=== PATIENT | female | born 1970 | race Caucasian/White ===

== ENCOUNTER 2016-06-05 07:19 | Inpatient (IN) | payer MEDICARE, OTHER ==
[2016-06-02 11:33] VITALS: BMI 26.3
[2016-06-02 11:39] VITALS: BMI 26.3
[~2016-06-05] VITALS: Ht 152.4 cm; Wt 69.0 kg
[2016-06-05] VITALS (13 sets, daily range): BP systolic 90–141; BP diastolic 60–84; PULSE 83–90; RESP 11–21; Ht 152.4 cm; Wt 69.0 kg
[~2016-06-05 07:19] MED LIST: BUPIVACAINE 0.25% (MPF) 30 ML INJ INJ ONE; CEFAZOLIN 1 GM INJ ONE; CEFAZOLIN 2 GM/50 ML (PMX) 50 ML IVPB SCH; CIPR500T4 PO; ESOM40CA PO; GEMF600T60 PO; GLYCOPYRROLATE 0.4 MG INJ ONE; LANT3I SC; LEVO75TA65 PO; METR500T PO; NOL20 PO; NOVO3I SC; SOD CHLORIDE 0.9% 1,000 ML IV SCH; SYN75 PO
[2016-06-05 09:08] LABS: BASOPHILS % 0.4 % (0.0-2.0); EOSINOPHILS # 0.1 10^3/ul (0.0-0.5); EOSINOPHILS % 2.3 % (0.0-7.0); HEMATOCRIT 32.9 % (37.0-47.0); HEMOGLOBIN 11.1 g/dl (12.0-16.0); LYMPHOCYTES # 1.8 10^3/ul (0.8-2.9); LYMPHOCYTES % 29.5 % (15.0-51.0); MEAN CORPUSCULAR HEMOGLOBIN 27.8 pg (29.0-33.0); MEAN CORPUSCULAR HGB CONC 33.8 g/dl (32.0-37.0); MEAN CORPUSCULAR VOLUME 82.3 fl (82.0-101.0); MEAN PLATELET VOLUME 9.2 fl (7.4-10.4); MONOCYTE # 0.4 10^3/ul (0.3-0.9); MONOCYTES % 6.6 % (0.0-11.0); NEUTROPHIL # 3.8 10^3/ul (1.6-7.5); NEUTROPHILS % 61.2 % (39.0-77.0); PLATELET COUNT 238 10^3/UL (140-440); RED CELL DISTRIBUTION WIDTH 12.4 % (11.5-14.5); UNCORRECTED WBC 6.2 10^3/ul (4.8-10.8); WHITE BLOOD COUNT 6.2 10^3/ul (4.8-10.8)
[2016-06-05] MEDS ORDERED: PROPOFOL 20 ML ONE (09:10)
[2016-06-05] MEDS ORDERED: ROCURONIUM 50 MG INJ ONE (09:10)
[2016-06-05] MEDS ORDERED: FENTAnyl 50 MCG/ML VIAL ONE (09:10)
[2016-06-05] MEDS ORDERED: MIDAZOLAM 1 MG/ML 2 ML INJ ONE (09:10)
[2016-06-05 09:14] LABS: INR 0.91; PROTIME 12.3 Sec (12.2-14.2)
[2016-06-05] MEDS ORDERED: ROPIVACAINE 0.2% 20 ML VIAL ONE (09:16)
[2016-06-05 09:23] LABS: CREATININE 0.59 mg/dl (0.44-1.00); POTASSIUM 4.1 mmol/L (3.5-5.1)
[2016-06-05] MEDS ORDERED: PHENYLephrine (100 MCG/ML) 5ML SYG ONE ×2 (09:26→09:51)
[2016-06-05 09:28] LABS: CONDITION 1
[2016-06-05] MEDS ORDERED: CEFAZOLIN 1 GM INJ ONE (09:34)
[2016-06-05] MEDS ORDERED: FAMOTIDINE 20 MG INJ ONE (09:37)
[2016-06-05] MEDS ORDERED: METOCLOPRAMIDE 10 MG INJ ONE (09:37)
[2016-06-05] MEDS ORDERED: ONDANSETRON 4 MG INJ ONE (09:37)
[2016-06-05 10:09] LABS: PARTIAL THROMBOPLASTIN TIME 24.5 Sec (25.0-35.0)
[2016-06-05] MEDS ORDERED: NEOSTIGMINE 3 MG/3 ML SYRINGE ONE ×2 (10:28)
[2016-06-05] MEDS ORDERED: MEPERIDINE 25 MG INJ IV PRN (10:30)
[2016-06-05] MEDS ORDERED: ACETAMINOPHEN 1000MG/100ML IV 100 ML IVPB PRN (10:30)
[2016-06-05] MEDS ORDERED: ONDANSETRON 4 MG INJ IV PRN (10:30)
[2016-06-05] MEDS ORDERED: HYDROmorphONE (0.2 MG/ML) 10ML SYG IV PRN (10:30)
[2016-06-05] MEDS ORDERED: D5W-0.45 NACL + KCL 20 MEQ 1,000 ML IV SCH (10:30)
[2016-06-05] MEDS ORDERED: hydrALAzine 20 MG INJ IV PRN (10:30)
--- NOTE | 2016-06-05 10:42 | OPR ---
DATE OF OPERATION: 06/05/2016 PREOPERATIVE DIAGNOSIS: Symptomatic cholelithiasis. POSTOPERATIVE DIAGNOSIS: Symptomatic cholelithiasis. OPERATION PERFORMED: Laparoscopic cholecystectomy. ANESTHESIA: General. ANESTHESIOLOGIST: INDICATIONS FOR PROCEDURE: The patient is a 45-year-old female, previously treated her for breast c ancer, which she completed successfully. Subsequently, she developed symptoms of biliary colic and cholelithiasis was confirmed on ultrasound. She was counseled as to the risks versus benefits of ch olecystectomy. She consented and was scheduled for surgery. DESCRIPTION OF PROCEDURE: The patient was brought to the operating theater, placed under general an esthesia. The abdomen was prepped and draped in usual sterile fashion. A 2-cm incision was made in the midline just above the umbilicus. Subcutaneous tissue was dissected with cautery down to the a nterior rectus sheath, 0 Vicryl stay sutures were placed on either side of the linea alba. The line a alba was incised and the abdomen was entered without difficulty. The Eris trocar was then place d in standard fashion and the abdomen was insufflated to a pressure of approximately 14 mmHg with ca rbon dioxide. The laparoscope was introduced and attention was directed to the right upper quadrant where a dye-st ained and distended gallbladder was identified. Three accessory ports were then placed under direct vision in standard fashion. Through the lateral port sites the gallbladder was grasped at the fund us and neck and retracted cephalad and lateral. Peritoneum overlying the gallbladder was incised dequan th medially and laterally to facilitate mobilization of the triangle of [place]ot. With meticulous diss ection, the cystic duct was isolated, and 2 clips were placed across it distally. It was then trans ected with the endovascular RAE stapler at its junction with the neck of the gallbladder. Subsequen tly, cystic artery was triply clipped and transected. The gallbladder was then dissected out of the gallbladder fossa using cautery. Prior to final transection, irrigation and inspection took place. Minimal bleeding was controlled w ith cautery. Gallbladder was transected. Laparoscope was moved to the 12-mm subcostal port site, a nd the gallbladder was retrieved from the abdomen through the umbilical port site using the Nekstad parth retrieval bag. The Eris trocar was then placed back into the abdomen. The abdomen was reinsu fflated. Laparoscope was moved back into the umbilical port site. Final irrigation and inspection took place. There was no evidence of bleeding. The 3 accessory ports were removed under direct vis ion. Again, there was no evidence of bleeding. Finally, the umbilical port was removed. Midline u mbilical fascia was reapproximated with 0 Prolene sutures in [id number] fashion. All wounds we re irrigated with Betadine and skin incisions were closed with skin chris. Patient tolerated proc edure well. ESTIMATED BLOOD LOSS: 10 mL. COMPLICATIONS: There were no complications. DISPOSITION: The patient was transported in stable condition to the recovery room. Dictated By: MONIKA GRACIA/MATEO Conf#: [id number] DID#: [id number]
[2016-06-05] MEDS: HYDROmorphONE (0.2 MG/ML) 10ML SYG IV PRN ×4 (10:53→13:04)
[2016-06-05] MEDS ORDERED: GLUCAGON 1 MG INJ IM PRN (17:00)
[2016-06-05] MEDS ORDERED: GLUCOSE GEL 15 GRAM TUBE PO PRN ×2 (17:00)
[2016-06-05] MEDS ORDERED: DEXTROSE 50% 50 ML SYRINGE IV PRN ×2 (17:00)
[2016-06-05] MEDS ORDERED: GLUCOSE GEL 15 GRAM TUBE BUCCAL PRN (17:00)
[2016-06-05] MEDS: SOD CHLORIDE 0.45% 1,000 ML IV SCH (17:14)
[2016-06-05] MEDS: INSULIN ASPART [NOVOLOG] 3 ML PEN SC SCH ×2 (17:39→21:16)
--- NOTE | 2016-06-05 19:04 | HP ---
DATE OF ADMISSION: 06/05/2016 CHIEF COMPLAINT: Upper abdominal pain. HISTORY OF PRESENT ILLNESS: The patient is a 45-year-old female with history of hypertension, hypot hyroidism, left breast cancer status post left partial mastectomy in 2014 status post chemotherapy, was seen by Dr. Rodriguez as an outpatient due to recurrent right upper quadrant pain. Ultrasound of th e abdomen was done, which revealed gallstone and fatty infiltration of the liver. The patient also underwent CT. The patient was brought into hospital for laparoscopic cholecystectomy. The patient postoperatively has significant abdominal pain and is therefore being admitted for further evaluatio n and management. The patient denied any history of chest pain, shortness of breath. No history of headache, dizziness, syncope. No history of focal weakness. No history of leg edema. No history of vomiting or diarrhea. No history of recent fever or chills. No history of dysuria or hematuria. No history of headache, dizziness, syncope. No history of cough, sore throat. No history of any acute skin rash. REVIEW OF SYSTEMS: Twelve systems were reviewed and all pertinent positive and negative findings schulte ve been described in the history of present illness. ALLERGIES: NONE. PAST SURGICAL HISTORY: Status post in 1994, status post gallbladder surgery in 2010, stat us post hernia repair in 1972, and left partial mastectomy in 2012. FAMILY HISTORY: Noncontributory for patient's condition. SOCIAL HISTORY: The patient was born in [facility], has been residing in the [facility] for mor e than 10 years. No history of alcohol or smoking. MEDICATIONS: The patient is on: 1. Tamoxifen. 2. Lopid. 3. Nexium. 4. Premeal Insulin Lantus. 5. Levoxyl. 6. The patient used to be on benazepril as per old chart; however, currently she is off of it and t he patient's blood pressure remains in low 100s and high 90s. Will hold off on antihypertensive at this time anyway. PHYSICAL EXAMINATION: GENERAL: The patient is conscious, awake, alert. VITAL SIGNS: Temperature 98.5, pulse 84, respirations 13, blood pressure 100/72, O2 is 100% on 2 li ters nasal cannula. HEENT: Atraumatic, normocephalic. Conjunctivae and lids normal. Oropharynx clear. NECK: Supple. No mass, no thyromegaly. LUNGS: Clear to auscultation. No use of accessory muscles. CARDIOVASCULAR: S1, S2 normal. No murmur, gallop, or rub. ABDOMEN: Soft. Incision clean. Bowel sounds sluggish. EXTREMITIES: No leg edema. Pedal pulses palpable. SKIN: Without rash. NEUROLOGIC: The patient is awake, alert, fairly oriented with no gross focal deficit. LABORATORY DATA: WBC 6.3, hemoglobin 11.1, platelets 238. Sodium 142, potassium 4.1, BUN 18, creat inine 0.5, glucose 194, calcium 9. EKG revealed normal sinus rhythm with no acute ST or T changes. IMPRESSION: 1. Symptomatic gallstones, status post laparoscopic cholecystectomy. 2. Diabetes mellitus. 3. Hypertension. 4. Hypothyroidism. 5. Breast cancer status post left partial mastectomy. PLAN: The patient admitted on medical floor. The patient will be started on clear liquid diet, whi ch will be advanced as tolerated. The patient will be given IV fluids until her p.o. intake is adeq uate. Will also start on Lantus. For now, I will keep her on sliding scale since her p.o. intake m ay not be consistent. Meanwhile, will also start her on SCDs for DVT prophylaxis. The patient's Sy nthroid will be continued. Will also continue tamoxifen. Will hold off on antihypertensive for now and will continue to monitor. Plan of care discussed with patient's family. Further recommendations will depend on patient's hosp ital course and recommendations from surgery. Plan of care also discussed with nursing staff. Dictated By: BETTY MONTELONGO/MATEO Conf#: [id number] DID#: [id number]
[2016-06-05] MEDS: ACETAMINOPHEN/CODEINE #3 TAB PO PRN (20:43)
[2016-06-05] MEDS: HYDROmorphONE 1 MG/ML SYG IV PRN (21:09)
[2016-06-05] MEDS: INSULIN GLARGINE [LANtus] 3 ML PEN SC SCH (21:16)
[2016-06-06] MEDS: SOD CHLORIDE 0.45% 1,000 ML IV SCH ×3 (03:10→15:41)
[2016-06-06] MEDS: HYDROmorphONE 1 MG/ML SYG IV PRN ×4 (03:31→18:49)
[2016-06-06] MEDS: ONDANSETRON 4 MG INJ IV PRN ×2 (03:31→09:28)
[2016-06-06] MEDS: LEVOTHYROXINE 75 MCG TAB PO SCH (05:40)
[2016-06-06 06:44] LABS: ALBUMIN 2.7 g/dl (3.3-4.9); BASOPHILS % 0.4 % (0.0-2.0); EOSINOPHILS # 0.1 10^3/ul (0.0-0.5); EOSINOPHILS % 1.4 % (0.0-7.0); HEMATOCRIT 29.1 % (37.0-47.0); LYMPHOCYTES # 1.6 10^3/ul (0.8-2.9); LYMPHOCYTES % 25.2 % (15.0-51.0); MEAN CORPUSCULAR HEMOGLOBIN 28.2 pg (29.0-33.0); MEAN CORPUSCULAR HGB CONC 34.3 g/dl (32.0-37.0); MEAN CORPUSCULAR VOLUME 82.1 fl (82.0-101.0); MONOCYTE # 0.4 10^3/ul (0.3-0.9); MONOCYTES % 6.8 % (0.0-11.0); NEUTROPHIL # 4.1 10^3/ul (1.6-7.5); NEUTROPHILS % 66.2 % (39.0-77.0); PLATELET COUNT 216 10^3/UL (140-440); RED BLOOD COUNT 3.54 10^6/ul (4.20-5.40); RED CELL DISTRIBUTION WIDTH 12.6 % (11.5-14.5); UNCORRECTED WBC 6.2 10^3/ul (4.8-10.8); WHITE BLOOD COUNT 6.2 10^3/ul (4.8-10.8)
[2016-06-06 06:45] LABS: POTASSIUM 3.7 mmol/L (3.5-5.1)
[2016-06-06 06:47] LABS: ALBUMIN/GLOBULIN RATIO 0.84; BILIRUBIN,INDIRECT 0.5 mg/dl (0-1.1); BILIRUBIN,TOTAL 0.5 mg/dl (0.2-1.3); CREATININE 0.47 mg/dl (0.44-1.00); TOTAL PROTEIN 5.9 g/dl (6.1-8.1)
[2016-06-06 06:48] LABS: CALCIUM 8.1 mg/dl (8.4-10.2)
[2016-06-06 07:09] LABS: CONDITION 1
[2016-06-06 08:07] VITALS: BP 96/52; RESP 20
[2016-06-06] MEDS: INSULIN ASPART [NOVOLOG] 3 ML PEN SC SCH ×4 (08:15→21:00)
[2016-06-06] MEDS ORDERED: TAMOXIFEN 10 MG TAB PO SCH (09:00)
[2016-06-06] MEDS: ACETAMINOPHEN/CODEINE #3 TAB PO PRN (09:36)
[2016-06-06] MEDS ORDERED: ACETAMINOPHEN 325 MG TAB PO PRN (12:30)
[2016-06-06] MEDS: METOCLOPRAMIDE 10 MG INJ IV PRN ×2 (12:39→18:49)
--- NOTE | 2016-06-06 17:05 | PN ---
Date/Time of Note Date/Time of Note DATE: 06/06/16 TIME: 17:03 Assessment/Plan VTE Prophylaxis VTE Prophylaxis Intervention: SCD's Lines/Catheters IV Catheter Type (from Nrs): Peripheral IV Assessment/Plan Chief Complaint/Hosp Course Assessment and plan 1. Symptomatic gallstones, status post laparoscopic cholecystectomy. Continue Reglan for nausea and morphine for pain. 2. Diabetes mellitus. Continue NovoLog. 3. Hypertension. 4. Hypothyroidism. Continue Synthroid. 5. Breast cancer status post left partial mastectomy. Further recommendations based on clinical course. Plan of care discussed with Dr. Peralta. Problems: Subjective 24 Hr Interval Summary Free Text/Dictation Patient had multiple episode of vomiting, continue Reglan per nausea, advance diet as patient tolerated. Exam/Review of Systems Vital Signs Vitals Vital Signs Date Time Temp Pulse Resp B/P Pulse Ox O2 Delivery O2 Flow Rate FiO2 06/06/16 09:00 Nasal Cannula 2.0 06/06/16 08:07 98.6 91 20 96/52 98 Intake and Output 06/05/16 06/05/16 06/06/16 15:00 23:00 07:00 Intake Total 1000 ml 1680 ml Output Total 160 ml Balance 840 ml 1680 ml Exam GENERAL: The patient is conscious, awake, alert. HEENT: Atraumatic, normocephalic. PERRLA NECK: Supple. No mass, no thyromegaly. LUNGS: Clear to auscultation. No use of accessory muscles. CARDIOVASCULAR: S1, S2 normal. No murmur, gallop, or rub. ABDOMEN: Soft. Incision clean. Bowel sounds sluggish. EXTREMITIES: No leg edema. Pedal pulses palpable. SKIN: Without rash. NEUROLOGIC: The patient is awake, alert. Results Result Diagram: 06/06/16 0505 06/06/16 0505 Results 24 hrs Laboratory Tests Test 06/05/16 17:21 06/05/16 21:13 06/06/16 05:05 06/06/16 07:42 Bedside Glucose 181 189 156 Alanine Aminotransferase (ALT/SGPT) 78 H Albumin 2.7 L Albumin/Globulin Ratio 0.84 Alkaline Phosphatase 70 Anion Gap 13 Aspartate Amino Transf (AST/SGOT) 88 H Basophils # 0.0 Basophils % 0.4 Blood Morphology Comment Blood Urea Nitrogen 9 # Calcium Level 8.1 L Carbon Dioxide Level 25 Chloride Level 105 Creatinine 0.47 Direct Bilirubin 0.00 Eosinophils # 0.1 Eosinophils % 1.4 Globulin 3.20 Glucose Level 172 Hematocrit 29.1 L Hemoglobin 10.0 L Indirect Bilirubin 0.5 Lymphocytes # 1.6 Lymphocytes % 25.2 Mean Corpuscular Hemoglobin 28.2 L Mean Corpuscular Hemoglobin Concent 34.3 Mean Corpuscular Volume 82.1 Mean Platelet Volume 9.0 Monocytes # 0.4 Monocytes % 6.8 Neutrophils # 4.1 Neutrophils % 66.2 Nucleated Red Blood Cells # 0.0 Nucleated Red Blood Cells % 0.0 Platelet Count 216 Potassium Level 3.7 Red Blood Count 3.54 L Red Cell Distribution Width 12.6 Sodium Level 139 Total Bilirubin 0.5 Total Protein 5.9 L White Blood Count 6.2 Test 06/06/16 11:17 06/06/16 16:52 Bedside Glucose 146 145 Medications Medications Current Medications Ondansetron HCl (Zofran Inj) 4 mg Q6H PRN IV NAUSEA AND/OR VOMITING Last administered on 06/06/16 09:28; Admin Dose 4 MG; Start 06/05/16 at 15:00 Acetaminophen/ Codeine Phosphate 1 tab 1 tab Q6H PRN PO PAIN Last administered on 06/06/16 09:36; Admin Dose 1 TAB; Start 06/05/16 at 10:30 Acetaminophen (Ofirmev 1000mg/ 100ml Iv) 100 ml @ 400 mls/hr Q6H PRN IVPB PAIN ; Start 06/05/16 at 10:30; Status Future Hold Insulin Glargine (Lantus) 32 unit QPM SC Last administered on 06/05/16 21:16; Admin Dose 32 UNIT; Start 06/05/16 at 21:00 Levothyroxine Sodium 75 mcg 75 mcg DAILY@06 PO Last administered on 06/06/16 05:40; Admin Dose 75 MCG; Start 06/06/16 at 06:00 Sodium Chloride (1/2 NS) 1,000 ml @ 100 mls/hr Q10H IV Last administered on 15:41; Admin Dose 100 MLS/HR; Start 06/05/16 at 16:30 Miscellaneous Information 1 ea NOTE XX ; Start 06/05/16 at 17:00 Glucose (Glutose) 15 gm Q15M PRN PO DECREASED GLUCOSE; Start 06/05/16 at 17:00 Glucose (Glutose) 22.5 gm Q15M PRN PO DECREASED GLUCOSE; Start 06/05/16 at 17: 00 Dextrose (D50w Syringe) 25 ml Q15M PRN IV DECREASED GLUCOSE; Start 06/05/16 at 17:00 Dextrose (D50w Syringe) 50 ml Q15M PRN IV DECREASED GLUCOSE; Start 06/05/16 at 17:00 Glucagon (Glucagen) 1 mg Q15M PRN IM DECREASED GLUCOSE; Start 06/05/16 at 17:00 Glucose (Glutose) 15 gm Q15M PRN BUCCAL DECREASED GLUCOSE; Start 06/05/16 at 17 :00 Hydromorphone HCl (Dilaudid) 1 mg Q3 PRN IV SEVERE PAIN LEVEL 7-10 Last administered on 06/06/16 12:43; Admin Dose 1 MG; Start 06/05/16 at 21:00 Tamoxifen Citrate (Nolvadex) 20 mg HS PO ; Start 06/06/16 at 21:00 Metoclopramide HCl (Reglan) 5 mg Q6H PRN IV NAUSEA AND/OR VOMITING Last administered on 06/06/16 12:39; Admin Dose 5 MG; Start 06/06/16 at 12:30 Acetaminophen (Tylenol Tab) 650 mg Q4H PRN PO PAIN AND OR ELEVATED TEMP; Start 06/06/16 at 12:30 FAITH LYNN Jun 06, 2016 17:05
[2016-06-06 20:00] VITALS: BP 98/57; PULSE 96; RESP 18
[2016-06-06 20:15] VITALS: BP 98/57; RESP 18
[2016-06-06] MEDS: TAMOXIFEN 10 MG TAB PO SCH (21:39)
[2016-06-06] MEDS: INSULIN GLARGINE [LANtus] 3 ML PEN SC SCH (22:01)
[2016-06-07] MEDS: SOD CHLORIDE 0.45% 1,000 ML IV SCH ×2 (02:04→08:08)
[2016-06-07 05:12] LABS: BASOPHILS % 0.4 % (0.0-2.0); EOSINOPHILS # 0.1 10^3/ul (0.0-0.5); EOSINOPHILS % 2.2 % (0.0-7.0); HEMATOCRIT 28.6 % (37.0-47.0); HEMOGLOBIN 9.8 g/dl (12.0-16.0); LYMPHOCYTES # 1.9 10^3/ul (0.8-2.9); MEAN CORPUSCULAR HEMOGLOBIN 28.2 pg (29.0-33.0); MEAN CORPUSCULAR HGB CONC 34.2 g/dl (32.0-37.0); MEAN CORPUSCULAR VOLUME 82.5 fl (82.0-101.0); MEAN PLATELET VOLUME 8.5 fl (7.4-10.4); MONOCYTE # 0.5 10^3/ul (0.3-0.9); MONOCYTES % 8.4 % (0.0-11.0); PLATELET COUNT 211 10^3/UL (140-440); RED BLOOD COUNT 3.46 10^6/ul (4.20-5.40); UNCORRECTED WBC 5.5 10^3/ul (4.8-10.8); WHITE BLOOD COUNT 5.5 10^3/ul (4.8-10.8)
[2016-06-07 05:15] LABS: CONDITION 1; POTASSIUM 3.2 mmol/L (3.5-5.1)
[2016-06-07 05:17] LABS: CREATININE 0.48 mg/dl (0.44-1.00)
[2016-06-07 05:18] LABS: CALCIUM 8.4 mg/dl (8.4-10.2)
[2016-06-07] MEDS: LEVOTHYROXINE 75 MCG TAB PO SCH (05:30)
[2016-06-07 07:49] VITALS: BP 114/59; RESP 18
[2016-06-07] MEDS: INSULIN ASPART [NOVOLOG] 3 ML PEN SC SCH ×6 (08:00→20:31)
--- NOTE | 2016-06-07 12:05 | PN ---
Date/Time of Note Date/Time of Note DATE: 06/07/16 TIME: 12:02 Assessment/Plan VTE Prophylaxis VTE Prophylaxis Intervention: SCD's Lines/Catheters IV Catheter Type (from Nrs): [place] Assessment/Plan Chief Complaint/Hosp Course Assessment and plan 1. Symptomatic gallstones, status post laparoscopic cholecystectomy. Continue Reglan for nausea and morphine for pain. 2. Diabetes mellitus. Lantus dose decreased, started on premeal Novolog , Mild sliding scale. 3. Hypertension. 4. Hypothyroidism. Continue Synthroid. 5. Breast cancer status post left partial mastectomy. 6. Mild hypokalemia, replaced. Further recommendations based on clinical course. Plan of care discussed with Dr. Peralta. Problems: Subjective 24 Hr Interval Summary Free Text/Dictation Tolerates diet well, pain is well controlled, hypoglycemic in AM, currently stable blood sugar, Insulin regimen changed according to Rivas. Exam/Review of Systems Vital Signs Vitals Vital Signs Date Time Temp Pulse Resp B/P Pulse Ox O2 Delivery O2 Flow Rate FiO2 06/07/16 07:49 97.6 86 18 114/59 96 06/06/16 20:00 Room Air 06/06/16 09:00 2.0 Intake and Output 06/06/16 06/06/16 06/07/16 15:00 23:00 07:00 Intake Total 1000 ml 900 ml Balance 1000 ml 900 ml Exam GENERAL: The patient is conscious, awake, alert. HEENT: Atraumatic, normocephalic. PERRLA NECK: Supple. No mass, no thyromegaly. LUNGS: Clear to auscultation. No use of accessory muscles. CARDIOVASCULAR: S1, S2 normal. No murmur, gallop, or rub. ABDOMEN: Soft. Incision clean. Bowel sounds sluggish. EXTREMITIES: No leg edema. Pedal pulses palpable. SKIN: Without rash. NEUROLOGIC: The patient is awake, alert. Results Result Diagram: 06/07/1641906/07/16419 Results 24 hrs Laboratory Tests Test 06/06/16 16:52 06/06/16 21:57 06/07/16 04:20 06/07/16 08:03 Bedside Glucose 145 162 53 L Anion Gap 10 Basophils # 0.0 Basophils % 0.4 Blood Morphology Comment Blood Urea Nitrogen 5 L Calcium Level 8.4 Carbon Dioxide Level 27 Chloride Level 108 Creatinine 0.48 Eosinophils # 0.1 Eosinophils % 2.2 Glucose Level 70 # Hematocrit 28.6 L Hemoglobin 9.8 L Lymphocytes # 1.9 Lymphocytes % 34.0 Mean Corpuscular Hemoglobin 28.2 L Mean Corpuscular Hemoglobin Concent 34.2 Mean Corpuscular Volume 82.5 Mean Platelet Volume 8.5 Monocytes # 0.5 Monocytes % 8.4 Neutrophils # 3.0 Neutrophils % 55.0 Nucleated Red Blood Cells # 0.0 Nucleated Red Blood Cells % 0.0 Platelet Count 211 Potassium Level 3.2 L Red Blood Count 3.46 L Red Cell Distribution Width 13.0 Sodium Level 142 White Blood Count 5.5 Test 06/07/16 08:18 06/07/16 08:42 06/07/16 09:08 Bedside Glucose 56 L 119 139 Medications Medications Current Medications Ondansetron HCl (Zofran Inj) 4 mg Q6H PRN IV NAUSEA AND/OR VOMITING Last administered on 06/06/16 09:28; Admin Dose 4 MG; Start 06/05/16 at 15:00 Acetaminophen/ Codeine Phosphate 1 tab 1 tab Q6H PRN PO PAIN Last administered on 06/06/16 09:36; Admin Dose 1 TAB; Start 06/05/16 at 10:30 Acetaminophen (Ofirmev 1000mg/ 100ml Iv) 100 ml @ 400 mls/hr Q6H PRN IVPB PAIN ; Start 06/05/16 at 10:30; Status Future Hold Insulin Glargine (Lantus) 32 unit QPM SC Last administered on 06/06/16 22:01; Admin Dose 32 UNIT; Start 06/05/16 at 21:00 Levothyroxine Sodium 75 mcg 75 mcg DAILY@06 PO Last administered on 06/07/16 05:30; Admin Dose 75 MCG; Start 06/06/16 at 06:00 Sodium Chloride (1/2 NS) 1,000 ml @ 100 mls/hr Q10H IV Last administered on 02:04; Admin Dose 100 MLS/HR; Start 06/05/16 at 16:30 Miscellaneous Information 1 ea NOTE XX ; Start 06/05/16 at 17:00 Glucose (Glutose) 15 gm Q15M PRN PO DECREASED GLUCOSE Last administered on 1/25 /17at 08:25; Admin Dose 15 GM; Start 06/05/16 at 17:00 Glucose (Glutose) 22.5 gm Q15M PRN PO DECREASED GLUCOSE; Start 06/05/16 at 17: 00 Dextrose (D50w Syringe) 25 ml Q15M PRN IV DECREASED GLUCOSE; Start 06/05/16 at 17:00 Dextrose (D50w Syringe) 50 ml Q15M PRN IV DECREASED GLUCOSE; Start 06/05/16 at 17:00 Glucagon (Glucagen) 1 mg Q15M PRN IM DECREASED GLUCOSE; Start 06/05/16 at 17:00 Glucose (Glutose) 15 gm Q15M PRN BUCCAL DECREASED GLUCOSE; Start 06/05/16 at 17 :00 Hydromorphone HCl (Dilaudid) 1 mg Q3 PRN IV SEVERE PAIN LEVEL 7-10 Last administered on 06/06/16 18:49; Admin Dose 1 MG; Start 06/05/16 at 21:00 Tamoxifen Citrate (Nolvadex) 20 mg HS PO Last administered on 06/06/16 21:39; Admin Dose 20 MG; Start 06/06/16 at 21:00 Metoclopramide HCl (Reglan) 5 mg Q6H PRN IV NAUSEA AND/OR VOMITING Last administered on 06/06/16 18:49; Admin Dose 5 MG; Start 06/06/16 at 12:30 Acetaminophen (Tylenol Tab) 650 mg Q4H PRN PO PAIN AND OR ELEVATED TEMP; Start 06/06/16 at 12:30 Insulin Glargine (Lantus) 17 unit HS SC ; Start 06/07/16 at 21:00; Status UNV Miscellaneous Information (* Miscellaneous Pharmacy Order) HYPOGLYCEMIA PROTOCOL w... ONCE ONCE XX ; Start 06/07/16 at 12:00; Stop 06/07/16 at 12:01; Status UNV Miscellaneous Information (* Miscellaneous Pharmacy Order) Discontinue Glyburide , Glipizide,... ONCE ONCE XX ; Start 06/07/16 at 12:00; Stop 06/07/16 at 12:01 ; Status UNV Miscellaneous Information (* Miscellaneous Pharmacy Order) Discontinue all previ... ONCE ONCE XX ; Start 06/07/16 at 12:00; Stop 06/07/16 at 12:01; Status UNV FAITH LYNN Jun 07, 2016 12:05
[2016-06-07] MEDS: ONDANSETRON 4 MG INJ IV PRN ×2 (12:25→20:38)
[2016-06-07] MEDS: HYDROmorphONE 1 MG/ML SYG IV PRN ×2 (12:28→20:38)
[2016-06-07] MEDS ORDERED: POTASSIUM CHLORIDE 20 MEQ in SOD CHLORIDE 0.9% 100 ML IVPB ONE (13:30)
[2016-06-07] MEDS: 1/2 NS + KCL 20 MEQ 1,000 ML IV SCH (13:35)
--- NOTE | 2016-06-07 14:46 | RADRPT ---
Vent Rate: 81 bpm RR Interval: 0 msec LA Interval: 154 msec QRS Duration: 76 msec QT Interval: 400 msec QTC Interval: 464 msec P-R-T [place]: 53 - 78 - 53 degrees Normal sinus rhythm Normal ECG Electronically Signed By: Vinicio Cabrales [id number]
[2016-06-07 18:48] VITALS: BP 109/62; RESP 18
[2016-06-07 20:00] VITALS: BP 115/55; RESP 20
[2016-06-07] MEDS: TAMOXIFEN 10 MG TAB PO SCH (20:30)
[2016-06-07] MEDS: INSULIN GLARGINE [LANtus] 3 ML PEN SC SCH (20:32)
[2016-06-08] MEDS: HYDROmorphONE 1 MG/ML SYG IV PRN ×6 (00:26→19:26)
[2016-06-08 00:28] VITALS: BP 109/68; PULSE 98; RESP 18
[2016-06-08 04:08] VITALS: BP 104/63; RESP 19
[2016-06-08] MEDS: ONDANSETRON 4 MG INJ IV PRN (04:18)
[2016-06-08] MEDS: 1/2 NS + KCL 20 MEQ 1,000 ML IV SCH (05:29)
[2016-06-08] MEDS: LEVOTHYROXINE 75 MCG TAB PO SCH (05:29)
[2016-06-08] MEDS: INSULIN ASPART [NOVOLOG] 3 ML PEN SC SCH ×9 (07:35→20:22)
[2016-06-08 07:44] VITALS: BP 121/75; RESP 18
[2016-06-08] MEDS: METOCLOPRAMIDE 10 MG INJ IV PRN (15:50)
[2016-06-08 19:52] VITALS: BP 89/56; RESP 12
[2016-06-08 20:23] VITALS: BP 113/65
--- NOTE | 2016-06-08 20:34 | PN ---
Date/Time of Note Date/Time of Note DATE: 06/08/16 TIME: 20:33 Assessment/Plan VTE Prophylaxis VTE Prophylaxis Intervention: other Lines/Catheters IV Catheter Type (from Nrs): Peripheral IV Urinary Cath still in place: No Assessment/Plan Assessment/Plan 1. Symptomatic gallstones, status post laparoscopic cholecystectomy. Continue Reglan for nausea and morphine for pain. 2. Diabetes mellitus. Lantus dose decreased, started on premeal Novolog , Mild sliding scale. 3. Hypertension. 4. Hypothyroidism. Continue Synthroid. 5. Breast cancer status post left partial mastectomy. 6. Mild hypokalemia, replaced on 06/07.. No BMP at present. Further recommendations based on clinical course. Plan of care discussed with Dr. Peralta. Exam/Review of Systems Vital Signs Vitals Vital Signs Date Time Temp Pulse Resp B/P Pulse Ox O2 Delivery O2 Flow Rate FiO2 06/08/16 20:23 113/65 06/08/16 19:52 98.2 92 12 96 06/08/16 08:00 Nasal Cannula 2.0 Intake and Output 06/07/16 06/07/16 06/08/16 15:00 23:00 07:00 Intake Total 2295 ml 1550 ml Output Total 1200 ml Balance 1095 ml 1550 ml Exam Constitutional: alert, obese, oriented Psych: nl mood/affect Head: normocephalic Eyes: EOMI, PERRL, nl sclera ENMT: nl external ears & nose Neck: non-tender Respiratory: clear to auscultation Cardiovascular: nl pulses Gastrointestinal: non-tender, soft Musculoskeletal: nl extremities to inspection Extremities: normal pulses Neurological: nl mental status, nl speech Skin: puncture Lymph: nontender Results Result Diagram: 06/07/1641906/07/16 042 Results 24 hrs Laboratory Tests Test 06/08/16 02:37 06/08/16 08:04 06/08/16 11:26 06/08/16 17:02 Bedside Glucose 231 H 133 224 H 201 Test 06/08/16 20:03 Bedside Glucose 168 Medications Medications Current Medications Ondansetron HCl (Zofran Inj) 4 mg Q6H PRN IV NAUSEA AND/OR VOMITING Last administered on 06/08/16t 04:18; Admin Dose 4 MG; Start 06/05/16 at 15:00 Acetaminophen/ Codeine Phosphate 1 tab 1 tab Q6H PRN PO PAIN Last administered on 06/06/16 09:36; Admin Dose 1 TAB; Start 06/05/16 at 10:30 Acetaminophen (Ofirmev 1000mg/ 100ml Iv) 100 ml @ 400 mls/hr Q6H PRN IVPB PAIN ; Start 06/05/16 at 10:30; Status Future Hold Levothyroxine Sodium (Synthroid) 75 mcg DAILY@06 PO Last administered on 05:29; Admin Dose 75 MCG; Start 06/06/16 at 06:00 Miscellaneous Information 1 ea NOTE XX ; Start 06/05/16 at 17:00 Glucose (Glutose) 15 gm Q15M PRN PO DECREASED GLUCOSE Last administered on 06/07 08:25; Admin Dose 15 GM; Start 06/05/16 at 17:00 Glucose (Glutose) 22.5 gm Q15M PRN PO DECREASED GLUCOSE; Start 06/05/16 at 17: 00 Dextrose (D50w Syringe) 25 ml Q15M PRN IV DECREASED GLUCOSE; Start 06/05/16 at 17:00 Dextrose (D50w Syringe) 50 ml Q15M PRN IV DECREASED GLUCOSE; Start 06/05/16 at 17:00 Glucagon (Glucagen) 1 mg Q15M PRN IM DECREASED GLUCOSE; Start 06/05/16 at 17:00 Glucose (Glutose) 15 gm Q15M PRN BUCCAL DECREASED GLUCOSE; Start 06/05/16 at 17 :00 Hydromorphone HCl (Dilaudid) 1 mg Q3 PRN IV SEVERE PAIN LEVEL 7-10 Last administered on 06/08/16 19:26; Admin Dose 1 MG; Start 06/05/16 at 21:00 Tamoxifen Citrate (Nolvadex) 20 mg HS PO Last administered on 06/07/16 20:30; Admin Dose 20 MG; Start 06/06/16 at 21:00 Metoclopramide HCl (Reglan) 5 mg Q6H PRN IV NAUSEA AND/OR VOMITING Last administered on 06/08/16 15:50; Admin Dose 5 MG; Start 06/06/16 at 12:30 Acetaminophen (Tylenol Tab) 650 mg Q4H PRN PO PAIN AND OR ELEVATED TEMP; Start 06/06/16 at 12:30 Insulin Glargine 17 unit 17 unit HS SC Last administered on 06/07/16 20:32; Admin Dose 17 UNIT; Start 06/07/16 at 21:00 Potassium Chloride/Sodium Chloride (1/2 NS + KCl 20 Meq) 1,000 ml @ 60 mls/hr [id number] IV Last administered on 06/08/16 05:29; Admin Dose 60 MLS/HR; Start at 13:00 JOSÉ MIGUEL COLES Jun 08, 2016 20:34
[2016-06-08] MEDS: TAMOXIFEN 10 MG TAB PO SCH (20:44)
[2016-06-08] MEDS: INSULIN GLARGINE [LANtus] 3 ML PEN SC SCH (20:44)
[2016-06-08 22:06] LABS: POTASSIUM 4.2 mmol/L (3.5-5.1)
[2016-06-08 22:09] LABS: CREATININE 0.53 mg/dl (0.44-1.00)
[2016-06-08 22:10] LABS: CALCIUM 8.7 mg/dl (8.4-10.2)
[2016-06-09] MEDS: 1/2 NS + KCL 20 MEQ 1,000 ML IV SCH ×2 (01:02→15:00)
[2016-06-09] MEDS: HYDROmorphONE 1 MG/ML SYG IV PRN ×3 (03:57→17:22)
[2016-06-09] MEDS: LEVOTHYROXINE 75 MCG TAB PO SCH (05:33)
[2016-06-09 06:30] LABS: POTASSIUM 4.1 mmol/L (3.5-5.1)
[2016-06-09 06:32] LABS: CREATININE 0.47 mg/dl (0.44-1.00)
[2016-06-09 06:33] LABS: CALCIUM 8.7 mg/dl (8.4-10.2)
[2016-06-09 06:53] LABS: BASOPHILS % 0.4 % (0.0-2.0); EOSINOPHILS # 0.2 10^3/ul (0.0-0.5); EOSINOPHILS % 3.9 % (0.0-7.0); HEMATOCRIT 28.3 % (37.0-47.0); HEMOGLOBIN 9.8 g/dl (12.0-16.0); LYMPHOCYTES # 1.8 10^3/ul (0.8-2.9); LYMPHOCYTES % 34.4 % (15.0-51.0); MEAN CORPUSCULAR HGB CONC 34.6 g/dl (32.0-37.0); MEAN CORPUSCULAR VOLUME 83.7 fl (82.0-101.0); MEAN PLATELET VOLUME 9.1 fl (7.4-10.4); MONOCYTE # 0.4 10^3/ul (0.3-0.9); MONOCYTES % 7.3 % (0.0-11.0); NEUTROPHIL # 2.8 10^3/ul (1.6-7.5); PLATELET COUNT 232 10^3/UL (140-440); RED BLOOD COUNT 3.38 10^6/ul (4.20-5.40); UNCORRECTED WBC 5.3 10^3/ul (4.8-10.8); WHITE BLOOD COUNT 5.3 10^3/ul (4.8-10.8)
[2016-06-09 07:14] LABS: CONDITION 1
[2016-06-09] MEDS: INSULIN ASPART [NOVOLOG] 3 ML PEN SC SCH ×6 (08:02→17:33)
[2016-06-09 08:18] VITALS: BP 130/77; RESP 18
[2016-06-09] MEDS ORDERED: HYDR-906 PO (18:39)
--- NOTE | 2016-06-10 14:15 | DS ---
DATE OF ADMISSION: 06/07/2016 DATE OF DISCHARGE: 06/09/2016 FINAL DIAGNOSES: 1. Symptomatic gallstones, status post laparoscopic cholecystectomy. 2. Diabetes mellitus. 3. Hypertension. 4. Hypothyroidism. 5. Breast cancer status post left partial mastectomy. 6. Mild hypokalemia, replaced. BRIEF HISTORY: The patient is a 45-year-old female who was admitted for symptomatic gallstones and underwent a laparoscopic cholecystectomy by Dr. Rodriguez. The patient postoperatively experienced some significant pain and nausea. The patient has a history of left breast cancer status post partial m astectomy and chemotherapy in 2014, and patient was admitted for further management. HOSPITAL COURSE: Patient was given Lantus and NovoLog, blood sugar was closely monitored and was we ll controlled. The patient was continued on Synthroid for hypothyroidism. Patient was given Zofran for nausea and Reglan for nausea, and Tylenol and Dilaudid for pain. The patient's condition impro augustin. The patient was able to tolerate diet and denied any nausea. Pain is well controlled and lise ent will be discharged home. CONDITION ON DISCHARGE: Hemodynamically stable. ACTIVITY: As patient tolerates. There is no lifting more than 25 pounds for 6 to 8 weeks. DIET ON DISCHARGE: 1800 ADA diet. MEDICATION ON DISCHARGE: 1. The patient was given prescription for [place] 5/325 mg 1 tablet p.o. q.4 hours p.r.n. for pain. The patient is continued on: 2. Nexium. 3. Gemfibrozil. 4. NovoLog. 5. Lantus. 6. Levothyroxine. 7. Tamoxifen. The patient is instructed to follow up with Dr. Rodriguez in postoperative appointment in 1 to 2 weeks. Interdisciplinary plan of care was established for this patient. Plan of care was discussed with Dr Brett Peralta. Dictated By: FAITH LYNN LOCAL DELIVERY TRUCK DRIVER for BETTY PERALTA MD SR/NTS Conf#: [id number] DID#: [id number]
== END 2016-06-09 19:24 | disposition home or self-care (01) | DRG 419 ==
LOC: SDS 07:19 → PP2 13:18 → SDS 06-07 16:49 → PP2 06-07 16:49
PROVIDERS: ADMIT Internal Medicine; ATTEND Internal Medicine
PROC: 0FT44ZZ Resection of Gallbladder, Percutaneous Endoscopic Approach (ICD-10-PCS; principal; 2016-06-05 09:00)
DX: K80.20 Calculus of gallbladder without cholecystitis without obstruction (principal); I10 Essential (primary) hypertension; E11.9 Type 2 diabetes mellitus without complications; E03.9 Hypothyroidism, unspecified; E87.6 Hypokalemia; Z85.3 Personal history of malignant neoplasm of breast
CPT/HCPCS: 80048; 80053; 82962; 84703; 85025; 85610; 85730; 88304; 93005; J0690; J1170; J1815; J2175; J2250; J2370; J2405; J2710; J2765; J2795; J3010; J3480; J7030

== ENCOUNTER 2018-09-03 11:50 | Day surgery (SDC) | payer MEDICARE, OTHER ==
[~2018-09-03] VITALS: Ht 152.4 cm; Wt 65.2 kg
[~2018-09-03 11:50] MED LIST changes: -BUPIVACAINE 0.25% (MPF) 30 ML INJ INJ ONE; -CEFAZOLIN 1 GM INJ ONE; -CEFAZOLIN 2 GM/50 ML (PMX) 50 ML IVPB SCH; -CIPR500T4 PO; -GEMF600T60 PO; +GEMF600T8 PO; -GLYCOPYRROLATE 0.4 MG INJ ONE; +HYDR-4011 PO; -LEVO75TA65 PO; +LEVO75TA84 PO; -METR500T PO; -SOD CHLORIDE 0.9% 1,000 ML IV SCH; -SYN75 PO
[2018-09-03 12:25] VITALS: Ht 152.4 cm; Wt 65.2 kg
--- NOTE | 2018-09-03 12:53 | PREAC ---
Date/Time of Note Date/Time of Note DATE: 09/03/18 TIME: 12:51 Anesthesia Eval and Record Evaluation Time Pre-Procedure Interview DATE: 09/03/18 TIME: 12:51 Age 47 Sex female NPO: 8 hrs Preoperative diagnosis upper abdominal pain Planned procedure EGD Past Medical History Past Medical History: Includes Cardio: HTN, Dyslipidemia Endo: Diabetes, Hypothyroid Pulm: Sleep Apnea GI: Obesity Surgery & Anesthesia Issues No known issue Meds Anticoagulation: No Beta Brionna within 24 hr: No Reason Beta Brionna not given: Pt. not on B-Brionna Active Scripts Hydrocodone/Acetaminophen ([place] 5-325 Tablet) 1 Each Tablet, 1 EACH PO Q4 for PAIN, #30 TAB Prov:FAITH LYNN 06/09/16 Levothyroxine Sodium* (Synthroid*) 75 Mcg Tab, 75 MCG PO DAILY@06, #30 TAB Prov:BETTY REILLY MD 09/13/15 Insulin Glargine* (Lantus*) 100 Unit/Ml Soln, 32 UNIT SC QPM, #1 Prov:BETTY REILLY MD 09/13/15 Insulin Aspart* (Novolog Insulin Pen*) 100 Unit/Ml Soln, 12 UNIT SC AC MEALS, #1 Prov:BETTY REILLY MD 09/13/15 Reported Medications Esomeprazole Mag Trihydrate (Nexium) Unknown Strength Capsule.dr, PO, #30 CAP 09/06/15 Tamoxifen Citrate* (Tamoxifen Citrate*) 20 Mg Tab, 20 MG PO DAILY, TAB 09/06/15 Gemfibrozil* (Gemfibrozil*) Unknown Strength Tablet, PO, TAB 09/06/15 Meds reviewed: Yes Allergies Coded Allergies: morphine (Verified Allergy, Unknown, 06/05/16) Allergies Reviewed: Yes Labs/Studies Labs Reviewed: Reviewed by anesthesiologist test: Negative Pre-procedure Exam Airway: Adequate mouth opening, Adequate thyromental dist Mallampati: Mallampati III Teeth: Normal Lung: Normal Heart: Normal ASA Physical Status ASA physical status: 3 Emergency: None Pre-operative Attestations Prior to commencing anesthesia and surgery, the patient was re-evaluated, there was verification of: *The patient's identity *The results of appropriate recent lab work and preoperative vital signs *The above evaluation not changing prior to induction *Anesthetic plan, risk benefits, alternative and complications discussed with patient/family; questions answered; patient/family understands, accepts and wishes to proceed. DANIEL GIPSON DO Sep 03, 2018 12:53
[2018-09-03] MEDS ORDERED: PROPOFOL 20 ML ONE (12:54)
[2018-09-03] MEDS ORDERED: LIDOCAINE 4% SOLUTION 50 ML BTL ONE (12:54)
[2018-09-03 13:00] VITALS: BP 100/60; PULSE 16; RESP 16
--- NOTE | 2018-09-03 13:11 | PAC ---
Date/Time of Note Date/Time of Note DATE: 09/03/18 TIME: 13:10 Post-Anesthesia Notes Post-Anesthesia Note Last documented vital signs 105/63 75 18 99% 98.0 Activity: WNL Respiratory function: WNL Cardiovascular function: WNL Mental status: Baseline Pain reasonably controlled: Yes Hydration appropriate: Yes Nausea/Vomiting absent: Yes DANIEL GIPSON DO Sep 03, 2018 13:11
[2018-09-03 15:00] VITALS: BP 100/68; RESP 16
== END 2018-09-03 15:25 | disposition home or self-care (01) ==
LOC: GIL 11:50
PROVIDERS: ATTEND Internal Medicine Gastroenterology
DX: K29.60 Other gastritis without bleeding (principal); I10 Essential (primary) hypertension; E11.9 Type 2 diabetes mellitus without complications; E03.9 Hypothyroidism, unspecified; E78.5 Hyperlipidemia, unspecified; G47.30 Sleep apnea, unspecified
CPT/HCPCS: 88305; 88312